=== PATIENT | male | born 1995 | race Native Hawaiian/Other Pacific Islander ===

== ENCOUNTER 2019-07-17 07:47 | Outpatient (CLI) | payer OTHER | END 2019-07-17 07:53 | disposition short-term general hospital (02) | LOC: AMB 07:47 | DX: R41.82 Altered mental status, unspecified (principal); R11.2 Nausea with vomiting, unspecified; R52 Pain, unspecified | CPT/HCPCS: A0425; A0427 ==

== ENCOUNTER 2019-07-17 08:00 | Emergency (ER) | payer OTHER ==
[~2019-07-17] VITALS: Ht 165.1 cm; Wt 81.6 kg
[2019-07-17 08:36] LABS: PLATELET COUNT 254 K/uL (142-355)
[2019-07-17 13:31] VITALS: BP 92/50; TEMP 98.5
== END 2019-07-17 13:46 | disposition home or self-care (01) ==
LOC: ED 08:00
PROVIDERS: Student in an Organized Health Care Education/Training Program
DX: F10.129 Alcohol abuse with intoxication, unspecified (principal); S63.91XA Sprain of unspecified part of right wrist and hand, initial encounter; Y09 Assault by unspecified means; V89.2XXA Person injured in unspecified motor-vehicle accident, traffic, initial encounter
CPT/HCPCS: 36415; 80053; 80307; 80320; 81000; 85027; 86850; 86900; 86901; 93005; 96360; 96361; 99284; Q9963